=== PATIENT | female | born 1965 | race Caucasian/White ===

== ENCOUNTER 2018-10-15 21:12 | Emergency (ER) | payer MEDICAID ==
--- NOTE | 2018-10-15 21:35 | ED Physician Chart ---
ED Chief Complaint/HPI - Patient Information Date Seen:: 10/15/18 Time Seen:: 21:25 Chief Complaint:: Chest pressure for about one week. History of Present Illness:: Brought in by ambulance because of chest pressure for about one week, characterized as intermittent, pressure like and localized at mid upper chest. Chest symptom is not exertion related. No associated palpitation or dyspnea. Pt denies any illicit drug use. Pt states that she can walk for miles without difficulty. She has no exercise limitation. Allergies:: Allergies Allergy/AdvReac Type Severity Reaction Status Date / Time metoclopramide [From Reglan] Allergy Verified 10/15/18 21:23 Vitals:: see Nurse Note. Historian:: Patient Family MD/PCP:: unknown. LMP:: Postmenopausal. 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 Surgical History: None Psychiatricy History: None Medication: Reviewed Family Medical History - Family Member Mother History Unknown: Yes ED Physical Exam - Physical Examination General/Constitutional: Awake, Well-developed, well-nourished (female), Alert, No distress, Non-toxic appearing, Ambulatory Other Gen/Cons comments:: Breathes comfortably, speaks clearly, and interacts appropriately. Head: Atraumatic Eyes: Lids, conjuctiva normal, PERRL, EOMI Skin: Nl inspection, No rash, Well hydrated, No lymphadenopathy ENMT: External ears, nose nl, Nasal exam nl, Oropharynx nl Neck: Nontender, Full ROM w/o pain, No JVD, No nuchal rigidity, No bruit, No mass, No stridor Respiratory: Nl effort/Exclusion, Clear to Auscultation, No Wheeze/Rhonchi/Rales Cardio Vascular: RRR, No murmur, gallop, rubs GI: No tenderness/rebounding/guarding, No organomegaly, Normal BS's, Nondistended, No mass/bruits : No CVA tenderness Extremities: No tenderness or effusion, No edema Neuro/Psych: Alert/oriented (oriented x 3), No focal deficits ED Labs/Radiology/EKG Results - Lab Results Results: Laboratory Results - last 24 hr 10/15/18 10/15/18 10/15/18 22:00 22:00 22:10 WBC 7.6 RBC 3.89 Hgb 11.3 L Hct 32.5 L MCV 83.5 MCH 29.0 MCHC Differential 34.8 RDW 12.6 Plt Count 350 MPV 5.9 Neutrophils % 50.0 Lymphocytes % 42.7 Monocytes % 4.7 Eosinophils % 1.5 Basophils % 1.1 PT INR PTT (Actin FS) Sodium Potassium Chloride Carbon Dioxide Anion Gap BUN Creatinine Est GFR ( Amer) Est GFR (Non-Af Amer) BUN/Creatinine Ratio Glucose Calcium Total Bilirubin AST ALT Alkaline Phosphatase Troponin I Total Protein Albumin Globulin Albumin/Globulin Ratio Urine Source CLEAN C Urine Color STRAW Urine Clarity CLEAR Urine pH 6.5 Ur Specific [place] <= 1.005 Urine Protein NEGATIVE Urine Glucose (UA) NEGATIVE Urine Ketones NEGATIVE Urine Blood NEGATIVE Urine Nitrate NEGATIVE Urine Bilirubin NEGATIVE Urine Urobilinogen 0.2 Ur Leukocyte Esterase NEGATIVE Urine Test NEGATIVE 10/15/18 10/15/18 10/15/18 22:10 22:10 22:10 WBC RBC Hgb Hct MCV MCH MCHC Differential RDW Plt Count MPV Neutrophils % Lymphocytes % Monocytes % Eosinophils % Basophils % PT 10.0 INR 0.96 PTT (Actin FS) 25.7 L Sodium 138 Potassium 3.6 Chloride 103 Carbon Dioxide 26.9 Anion Gap 11.7 BUN 11 Creatinine 0.9 Est GFR ( Amer) > 60.0 Est GFR (Non-Af Amer) > 60.0 BUN/Creatinine Ratio 12.2 Glucose 133 H Calcium 9.4 Total Bilirubin 0.3 AST 47 H ALT 72 H Alkaline Phosphatase 105 H Troponin I 0.01 Total Protein 6.5 Albumin 4.1 Globulin 2.4 Albumin/Globulin Ratio 1.7 Urine Source Urine Color Urine Clarity Urine pH Ur Specific [place] Urine Protein Urine Glucose (UA) Urine Ketones Urine Blood Urine Nitrate Urine Bilirubin Urine Urobilinogen Ur Leukocyte Esterase Urine Test - Radiology Results Results: CXR (1v): Based on my interpretation, bilateral breast augmentation implants noticed. NAD otherwise. Official report is pending. - EKG Interpretations EKG Time:: 21:38 Rate & Rhythm: NSR with VR 81 Comments:: No acute ischemic changes. ED Septic Shock - . Is Septic Shock (SBP<90, OR Lactate>4 mmol\L) present?: No ED Reassessment (Disposition) - Reassessment Reassessment:: 0125 Pt has been repeatedly evaluated. Pt has been sleeping well without pain or discomfort. Lab results just became available. Lab, CXR, and EKG have been reviewed with pt. Management plan has been discussed. Reassessment Condition:: Improved - Diagnosis Diagnosis:: Noncardiac chest symtom by hx. Stable and currently asymptomatic. Recent h/o UTI, resolved. - Aftercare/Follow up Instructions Aftercare/Follow-Up Instructions:: Refer to Discharge Instructions Notes:: Bed rest for today. Continue present care. F/U with Dr. Bobo or PCP of patient's choice in one day for recheck with repeat lab studies:CBC, CMP. Return to ER immediately if condition worsens or if any further questions/problems. Medication Prescribed:: None - Patient Disposition Discharge/Transfer:: home/self care. Time:: 01:30 Condition at Disposition:: Stable, Improved
[2018-10-15 22:26] LABS: % BASOPHILS 1.1 % (0.0-2.0); % EOSINOPHILS 1.5 % (0.0-5.0); % LYMPHOCYTES 42.7 % (20.0-50.0); % MONOCYTES 4.7 % (2.0-10.0); BASOPHILE ABSOLUTE 0.1 Th/cumm (0-0.2); EOSINOPHILE ABSOLUTE 0.1 Th/cmm (0.1-0.4); HEMATOCRIT 32.5 % (41.0-60); HEMOGLOBIN 11.3 gm/dL (12-16); LYMPHOCYTE ABSOLUTE 3.2 Th/cmm (1.5-3.0); MEAN CELL VOLUME 83.5 fl (81-100); MEAN CORPUSCULAR HGB CONC 34.8 pg (28.0-36.0); MONOCYTE ABSOLUTE 0.4 Th/cmm (0.3-1.0); NEUTROPHILE ABSOLUTE 3.8 Th/cmm (1.8-8.0); PLATELET COUNT 350 Th/cmm (150-400); RED BLOOD COUNT 3.89 Mil/cmm (3.80-5.10); RED CELL DISTRIBUTION WIDTH 12.6 % (11.5-20.0); WHITE BLOOD COUNT 7.6 Th/cmm (4.8-10.8)
[2018-10-15 22:29] LABS: URINE SOURCE CLEAN C
[2018-10-15 22:37] LABS: URINE BILIRUBIN NEGATIVE (NEGATIVE); URINE BLOOD NEGATIVE (NEGATIVE); URINE GLUCOSE (UA) NEGATIVE (NEGATIVE); URINE KETONE NEGATIVE (NEGATIVE); URINE LEUKOCYTE ESTERASE NEGATIVE (NEGATIVE); URINE NITRATE NEGATIVE (NEGATIVE); URINE PH 6.5 (4.6 - 8.0); URINE PROTEIN NEGATIVE (NEGATIVE); URINE UROBILINOGEN 0.2 E.U./dL (0.2 - 1.0)
[2018-10-15 22:40] LABS: URINE CLARITY CLEAR (CLEAR); URINE COLOR STRAW; URINE MICROSCOPIC INDICATED? NO
[2018-10-15 22:45] LABS: ALB/GLOB RATIO 1.7 (1.0-1.8); ALBUMIN 4.1 gm/dL (3.7-5.3); ALKALINE PHOSPHATASE 105 U/L (34-104); ANION GAP 11.7 (7.0-16.0); BILIRUBIN,TOTAL 0.3 mg/dL (0.3-1.0); BUN - UREA NITROGEN 11 mg/dL (7-25); CALCIUM SERUM 9.4 mg/dL (8.6-10.3); CARBON DIOXIDE 26.9 mEq/L (21.0-31.0); CHLORIDE 103 mEq/L (98-107); CREATININE - SERUM 0.9 mg/dL (0.6-1.2); GFR AFRICAN-AMERICAN > 60.0 ml/min (>90); GFR NON AFRICAN-AMERICAN > 60.0 ml/min; GLUCOSE 133 mg/dL (70-105); POTASSIUM SERUM 3.6 mEq/L (3.5-5.1); SGOT 47 U/L (13-39); SGPT/ALT 72 U/L (7-52); SODIUM SERUM 138 mEq/L (136-145); TOTAL PROTEIN,SERUM 6.5 gm/dL (6.0-8.3)
[2018-10-15 23:09] LABS: INR 0.96 (0.5-1.4)
--- NOTE | 2018-10-16 08:09 | Diagnostic Imaging Report ---
CHEST X-RAY: AP view INDICATION: Chest pressure COMPARISON: None FINDINGS: Bilateral breast implants are seen limiting assessment of lower lung zones. No focal consolidation or effusion. Heart size is normal. There may be minimal scoliosis. IMPRESSION: No focal consolidation identified. Bilateral breast implants.
== END 2018-10-16 01:45 | disposition home or self-care (01) ==
LOC: ER 21:12 → EDBD 21:12 → ER 10-16 01:45
DX: R07.89 Other chest pain (principal); Z88.8 Allergy status to other drugs, medicaments and biological substances
CPT/HCPCS: 36415-UA; 71045-TC; 80053-TC; 81003-TC; 81025-TC; 84484-TC; 85025-TC; 85610-TC; 93005